=== PATIENT | male | born 1955 | race Caucasian/White ===

== ENCOUNTER 2016-12-08 12:01 | Day surgery (SDC) | payer OTHER ==
[~2016-12-08] VITALS: Ht 180.3 cm; Wt 74.7 kg
[2016-12-08] VITALS (10 sets, daily range): BP systolic 98–121; BP diastolic 6–74; PULSE 53–63; RESP 9–16; O2SAT 94–100
[~2016-12-08 12:01] MED LIST: CYCL1DRO AFFECT_EYE; CeFAZolin Inj 2 GM in IV Premix 1 EACH IV ONE; CeFAZolin Inj 2 GM in IV Premix 1 EACH IV SCH; SILD100T PO
[2016-12-08] MEDS ORDERED: fentaNYL-PF 50 mCg/mL 2 mL Inj ONE (12:02)
[2016-12-08] MEDS ORDERED: Dexamethasone 4 mg/mL Inj ONE (12:02)
[2016-12-08] MEDS ORDERED: Glycopyrrolate 0.2 MG/ML 1mL Inj ONE (12:02)
[2016-12-08] MEDS ORDERED: Ondansetron 2 mg/mL 2 mL Inj ONE (12:02)
[2016-12-08] MEDS ORDERED: Propofol 10,000 mCg/mL 20 mL Inj ONE (12:02)
[2016-12-08] MEDS ORDERED: MetoCLOpramide 5 mg/mL 2 mL Inj ONE (12:02)
[2016-12-08] MEDS ORDERED: Lidocaine PF 1% 30 mL Inj ONE (12:02)
[2016-12-08] MEDS ORDERED: Phenylephrine/NS-PF 100 mCg/mL 5 mL Syringe IVPUSH ONE (12:02)
[2016-12-08] MEDS ORDERED: CeFAZolin 2 Gm/50 mL D5W Duplex Bag IV ONE (12:04)
[2016-12-08] MEDS: Lactated Ringer's 1,000 ML IV SCH ×2 (12:07→13:22)
[2016-12-08] MEDS ORDERED: SILD20TA14 PO (12:14)
[2016-12-08] MEDS ORDERED: Lactated Ringer's 500 ML IV PRN (13:02)
[2016-12-08] MEDS ORDERED: Lactated Ringer's 1,000 ML IV SCH (13:02)
--- NOTE | 2016-12-08 13:02 | PCM.HPANE ---
Patient Data Date of Service: Dec 08, 2016 Surgeon Admitting Provider: Attending Provider:Leann Dominguez MD Primary Care Physician:Goldie Goodwin PA-C Other Provider:Breanna Pandey Anesthesia Reason for Visit Bladder Stone Ht/WT & BMI Height (Feet): 5 Height (Inches): 11 Weight (Kilograms): 74.7 Body Mass Index 23.00 Allergies Coded Allergies: No Known Allergies (Unverified , 12/07/16) Past Anesthesia History Anesthesia History: Denies:: Fam Anesthesia Reaction, Fam Malignant Hypertherm Diabetes History Hx Diabetes?: No MRSA MRSA: No Medications Home Meds Incl Beta Bhavana: No Reported Medications Sildenafil Citrate (Sildenafil)20 Mg Sfxopv52 Mg PO prn #30 12/08/16 Cyclosporine (Restasis)1 Each Droperette1 Each AFFECT_EYE BID 12/07/16 Discontinued Reported Medications Sildenafil Citrate (Viagra)100 Mg Mpthct79-694 Mg PO DAILY PRN ed Ref 0 12/07/16 History History of ENT Problems?: No HEENT History: Denies:: Abnormal Airway Difficult Intubation Denture Type: None Teeth Condition: Within Normal Limits Hx of Heart Problems?: No Cardiovascular History: Denies:: Heart Murmur Hypertension Hx of Respiratory Problem?: No Respiratory History: Denies:: Use of C-PAP Machine Hx Neurologic Problems?: Yes Neurological History: Denies:: Dementia (HX CONCUSSION 2015-MILD COGNITIVE IMPAIRMENT) Hx of GI Problems?: No Hx of Problems?: Yes Other Pertinent History: BLADDER STONE=CURRENT PROBLEM ED Male Hx: Denies:: Prostate Problems Scrotal Mass Testicular Surgery Skin History: Denies:: History Skin Disorders? Pressure Ulcers Hx Musculoskeletal Problems?: No Musculoskeletal History: Denies:: Systemic Lupus Hx of Psycho/Social Problems?: No Hx Surgeries?: Yes Hx Any Other Health Problems?: No Other History: Denies:: Cancer Endocrine Disease Hospitalization Thyroid Disease Hx Diabetes: No Hx Alcohol Use: NoHx Substance Use: NoHave You Smoked inLast 12 mo: No Stop/Bang Treated for Sleep Apnea?: No Do You Have a CPAP Machine?: No S-Snoring: Do You Snore Loudly: No T-Tired: feel tired, fatigued: Yes O-Obsered: Observed not breath: No P-Blood Pressure: treated: No B- Body Mass Index > 35 kg/m2: No A- Age over 50: Yes N- Neck Large Circumference: No G- Gender Male: Yes ZAN Total Score: 3 ZAN Risk Assessment: High Risk, =/>3 Yes ZAN Category 4 OutPt Procedure: Yes Risk Assessment Category Category 1A: Patient has history of documented sleep apnea, and HAS NOT received any narcotic, sedative or anesthesia administration during this stay. Category 1B: Patient has history of documented sleep apnea, and HAS received any narcotic , sedative or anesthesia administration during this stay Category 2: Patient has SUSPECTED Obstructive Sleep Apnea, and HAS received any narcotic , sedative or anesthesia administration during this stay. Category 3: Patient has SUSPECTED Obstructive Sleep Apnea and HAS NOT received narcotic, sedative or anesthesia administration during this stay. Category 4: Outpatient in Procedural Areas with known sleep apnea or who screen positive for High Risk via the STOP/BANG questionnaire. Exam Exam Vital Signs Vital Signs Date Time Temp Pulse Resp B/P Pulse Ox O2 Delivery O2 Flow Rate FiO2 12/08/16 12:12 36.3 53 16 121/72 100 Room Air General Appearance: Alert, Oriented X3, Cooperative HEENT/AIRWAY: MP 2, Neck Movement, Mouth Opening (Wide) Lungs: Clear to Auscultation, Normal Air Movement Heart: Regular Rate/Rhythm, Normal S1, Normal S2 Meds/Labs/Diagnostics Admission Meds Current Medications Lactated Ringer's (Lr) 1,000 ml @ 120 mls/hr Q8H20M IV Last administered on 12:07; Start 12/08/16 at 05:00; Stop 12/08/16 at 13:19 Plan Impression Patient chart reviewed, patient interviewed and anesthestic plan with risks, benefits, and alternatives discussed, and informed consent obtained. NPO per Anesth. Guidelines: Yes ASA Physical Status: ASA2 Mod Systemic Disease Anesthetic Plan: GA Bene/Risks/Altern/Consents: Yes HP Complete Prior to Induction: Yes Keaton Collins MD Dec 08, 2016 12:33
[2016-12-08] MEDS ORDERED: Dexamethasone 4 mg/mL Inj IVPUSH PRN (13:05)
[2016-12-08] MEDS ORDERED: Phenylephrine 10,000 mCg/mL Inj IVPUSH PRN (13:05)
[2016-12-08] MEDS ORDERED: EPHEDrine Sulfate 50 mg/mL Inj IVPUSH PRN (13:05)
[2016-12-08] MEDS ORDERED: Ondansetron 2 mg/mL 2 mL Inj IVPUSH PRN (13:05)
[2016-12-08] MEDS ORDERED: MetoCLOpramide 5 mg/mL 2 mL Inj IVPUSH PRN (13:05)
[2016-12-08] MEDS ORDERED: HYDROmorphone 1 mg/mL Inj IVPUSH PRN (13:05)
[2016-12-08] MEDS ORDERED: fentaNYL-PF 50 mCg/mL 2 mL Inj IVPUSH PRN (13:05)
[2016-12-08] MEDS ORDERED: HYDROcodone-APAP 5-325 mg Tablet PO PRN (14:10)
--- NOTE | 2016-12-08 14:50 | OP ---
[address] [address] OPERATIVE REPORT PATIENT: DILIP CONN : 1955 MR#: [id number] ADMIT: 12/08/2016 JOB ID: [id number] DATE OF SURGERY: 12/08/2016 PREOPERATIVE DIAGNOSIS(ES): Bladder stone. POSTOPERATIVE DIAGNOSIS(ES): Bladder stone. PROCEDURE PERFORMED: Cystoscopy and cystolitholapaxy. SURGEON: Leann Dominguez MD MERCHANDISE DELIVERER: None. FINDINGS: A 2 cm francoise stone. ANESTHESIA: General. ESTIMATED BLOOD LOSS: Less than 5 mL. DRAINS: None. SPECIMENS: Bladder stone. COMPLICATIONS: None. CONDITION: Stable. INDICATION FOR PROCEDURE: The patient is a 61-year-old man with a bladder stone discovered on cystoscopy for irritative voiding. He was counseled as to his options including transurethral resection of prostate but the patient wanted to move forward with cystolitholapaxy only. DESCRIPTION OF PROCEDURE: After informed consent was obtained, the patient was taken to the operating room. A time-out was performed identifying correct patient, surgical site, and procedure. General anesthesia was smoothly induced. He was given intravenous antibiotics just prior to the start of the procedure. He was placed in the lithotomy position and all pressure points were identified and appropriately padded. A 22-[place] rigid cystoscope was applied to the patient's urethra and advanced into the bladder. The bladder was drained. The bladder had demonstrated plus 2 to 3 trabeculation. Both ureteral orifices were seen in orthotopic position. The bladder stone was seen. It was a francoise stone in shape and it was very dense. A 940 micron laser fiber wire was used to break the stone into small pieces. Again, the stone was very dense and there was considerable effort to break the stone into small fragments. The stones were evacuated through the cystoscope and an Ellik. At the end of the procedure the stone fragments had been entirely removed from the patient's bladder. The bladder was again drained. The cystoscope was then removed. The patient was then reversed from general anesthesia and taken to the PACU in good and stable condition. TABITHA
[2016-12-08] MEDS ORDERED: HYDROmorphone 0.5 mg/0.5 mL iSecure Syringe ONE (15:03)
--- NOTE | 2016-12-08 17:09 | PCM.ANEP1 ---
Post Anesthesia PACU Phase 1 Assessment Date of Service: Dec 08, 2016 Vital Signs Vital Signs Date Time Temp Pulse Resp B/P Pulse Ox O2 Delivery O2 Flow Rate FiO2 12/08/16 16:35 113/67 12/08/16 16:26 55 15 98/59 94 Room Air 12/08/16 14:59 36.6 53 16 116/74 98 Room Air 12/08/16 14:50 55 12 117/72 100 12/08/16 14:35 55 14 115/72 100 12/08/16 14:20 57 13 105/67 100 Room Air 12/08/16 14:15 58 9 106/67 98 Room Air 12/08/16 14:10 63 14 104/69 100 Simple Mask 8 12/08/16 14:05 35.5 61 13 110/65 100 Simple Mask 8 12/08/16 12:12 36.3 53 16 121/72 100 Room Air Anesthetic Administered: GA Level of Alertness: Awake, talking GAMBOA's with Equal Strength: Yes Pain: No Nausea or Vomiting: No CV Function & Hydration Stable: Yes Airway Device: Oxygen Delivery: Room Air Lungs: Normal Air Movement PACU Phase 2 Assessment Complications: No Follow up Care: No Patient Instructions Provided: N/A Keaton Collins MD Dec 08, 2016 17:09
== END 2016-12-08 23:59 | disposition home or self-care (01) ==
LOC: SAS 12:01
PROVIDERS: ATTEND Urology
DX: N21.0 Calculus in bladder (principal)
CPT/HCPCS: 52317; 82360; J0690; J1100; J1170; J2250; J2370; J2405; J2765; J3010; J7120